=== PATIENT | male | born 1995 | race Caucasian/White ===

== ENCOUNTER 2020-02-23 15:38 | Emergency (ER) | payer OTHER, SELFPAY ==
[2020-02-23 15:48] VITALS: BP 131/68; PULSE 85; RESP 17; TEMP 37.6; O2SAT 98
--- NOTE | 2020-02-23 15:48 | ED.SKABFB ---
HPI - Skin/Abscess/Foreign Bdy General Chief complaint: Wound/Laceration Stated complaint: right leg sore Time Seen by Provider: 02/23/20 16:01 Source: patient and RN notes reviewed Mode of arrival: ambulatory Limitations: no limitations History of Present Illness HPI narrative: 23-year-old male presents with concern for a sore on his right lateral lower leg after possibly getting bit by a bug 1 week ago. Reports pain, tenderness, swelling, tightness. Denies fever, malaise, chills, sweats. Denies any intervention. MD complaint: other (Leg pain) Related Data Allergies Allergy/AdvReac Type Severity Reaction Status Date / Time No Known Allergies Allergy Unknown Verified 08/02/19 15:28 Review of Systems Review of Systems: Narrative: CONSTITUTIONAL: Denies malaise, chills, sweats, or fever. CARDIOVASCULAR: Denies chest pain, palpitations, or edema. RESPIRATORY: Denies cough or dyspnea. SKIN: Reports painful, red, swollen area on right lower leg MUSCULOSKELETAL: Denies myalgia. NEUROLOGIC: Denies numbness, weakness All systems reviewed & are unremarkable except as noted in HPI and below PMFSH Past Medical History Medical History (Updated 02/23/20 @ 16:00 by Taylor Green NP) Anxiety Depression Ear infection Enlarged adenoids Migraines Syncope Tonsillitis Surgical History Surgical History (Updated 08/02/19 @ 16:03 by Francoise Tamayo) H/O bone marrow transplant Hx of adenoidectomy Hx of tonsillectomy Social History Social History (Updated 08/02/19 @ 16:04 by Francoise Tamayo) Smoking packs per day: 1.5 Smoking cigarettes per day: 30.0 Years smoked: 6 Smoking pack-years: 9.00 Smoking status: Former smoker Tobacco type: cigarettes Smoking end date: 07/28/17 Comments At time of signature, agree with nursing past medical, surgical, social and family history. There is no relevant family history pertinent to the presenting complaint Exam Narrative: Exam Narrative: GENERAL: Well-appearing, well-nourished, and in no acute distress. HEAD: Normocephalic EYES: PERRLA, conjunctivae clear ENT: mucous membranes moist. NECK: Supple. CHEST: No respiratory distress. Speaks in full sentences. HEART: Regular rate and rhythm. EXTREMITIES: Normal range of motion. No edema. Normal strength and sensation. SKIN: Warm, dry. Approximately 10 cm area of erythema, induration, warmth, tenderness to the right lateral leg consistent with cellulitis, no fluctuation noted NEURO: Alert and oriented x3. PSYCH: Normal mood and affect Course Course Emergency Course: Patient is aware of diagnosis, understands and agrees to treatment plan. Anticipatory guidance given. Patient agrees to follow-up as directed and is aware of reasons to seek care at the emergency department. Portions of this record may have been created with voice recognition software Vital Signs Vital signs: Vital Signs Temperature 99.6 F 02/23/20 15:48 Pulse Rate 85 02/23/20 15:48 Respiratory Rate 17 02/23/20 15:48 Blood Pressure 131/68 02/23/20 15:48 Pulse Oximetry 98 02/23/20 15:48 Temperature 99.6 F 02/23/20 15:48 Pulse Rate 85 02/23/20 15:48 Respiratory Rate 17 02/23/20 15:48 Blood Pressure 131/68 02/23/20 15:48 Pulse Oximetry 98 02/23/20 15:48 Reviewed. MDM - Skin/Abscess/Foreign Bdy MDM Narrative Medical decision making narrative: Exam findings show no acute concerns or changes; patient is non-toxic appearing and is in no distress. Patient is appropriate for outpatient treatment and follow-up. Differential Diagnosis Differential diagnosis: Likely abscess of skin or subcutaneous tissue, urticaria, cellulitis, insect bites, impetigo and contact dermatitis Critical Care Time Critical Care Time Critical Care Time: No Discharge Plan Discharge Clinical Impression: Cellulitis Qualifiers: Site of cellulitis: extremity Site of cellulitis of extremity: lower extremity Laterality: right Qualified Code(s):
== END 2020-02-23 16:01 | disposition home or self-care (01) ==
PROVIDERS: Emergency Provider Nurse Practitioner; PCP Internal Medicine
DX: L03.115 Cellulitis of right lower limb (principal); Z87.891 Personal history of nicotine dependence; Z94.81 Bone marrow transplant status
CPT/HCPCS: 99213; G0463

== ENCOUNTER 2020-12-28 11:35 | Emergency (ER) | payer OTHER, SELFPAY ==
--- NOTE | ~2020-12-28 | XR_ITS ---
XR finger 4th RT min 2V 12/28/2020 11:57 INDICATION: Blunt trauma to right fourth finger with pain PROCEDURE: 4 views right fourth finger COMPARISON: No prior studies for comparison. FINDINGS: Fracture, dislocation or subluxation is not identified. The soft tissues appear within norm al limits. No foreign bodies are identified. IMPRESSION: 1: NO ACUTE BONE OR JOINT ABNORMALITY IDENTIFIED. Reviewed, dictated and finalized at location A.
[2020-12-28 11:40] VITALS: BP 143/79; PULSE 77; RESP 16; TEMP 37.4; O2SAT 100
--- NOTE | 2020-12-28 11:55 | ED.UPPEXIN ---
HPI - Extremity Injury (Upper) General Chief Complaint: Extremity Injury, Upper Stated Complaint: right hand finger injury Time Seen by Provider: 12/28/20 11:56 Source: patient and RN notes reviewed Mode of arrival: ambulatory Limitations: no limitations History of Present Illness HPI narrative: 25-year-old male presents with concern for crush injury to the fourth digit of his right hand that he sustained last night. He smashed the digit between 2 heavy items in his truck. Reports the tip of the digit seems deformed, he put it back in place . Reports decreased range of motion in the digit. Reports his fingernail is dark and has a lot of pressure under it. He denies lacerations, abrasions, deformities. MD complaint: injury to: right and hand Related Data Home Medications Medication Instructions Recorded Confirmed No Home Medications 12/28/20 12/28/20 Allergies Allergy/AdvReac Type Severity Reaction Status Date / Time No Known Allergies Allergy Unknown Verified 12/28/20 11:52 Review of Systems Review of Systems: Narrative: CONSTITUTIONAL: Denies malaise, chills, sweats, or fever. SKIN: Denies lacerations, abrasions. Reports dark-colored fingernail on the fourth digit of the right hand MUSCULOSKELETAL: Reports distal pain, swelling, bruising to the fourth digit of the right hand, decreased range of motion to the digit NEUROLOGIC: Denies numbness, weakness. All systems reviewed & are unremarkable except as noted in HPI and below PMFSH Past Medical History Medical History (Updated 12/28/20 @ 12:17 by Taylor Green NP) Anxiety Depression Ear infection Enlarged adenoids Migraines Syncope Tonsillitis Surgical History Surgical History (Updated 08/02/19 @ 16:03 by Francoise Tamayo) H/O bone marrow transplant Hx of adenoidectomy Hx of tonsillectomy Social History Social History (Updated 08/02/19 @ 16:04 by Francoise Tamayo) Smoking packs per day: 1.5 Smoking cigarettes per day: 30.0 Years smoked: 6 Smoking pack-years: 9.00 Smoking status: Former smoker Tobacco type: cigarettes Smoking end date: 07/28/17 Comments At time of signature, agree with nursing past medical, surgical, social and family history. There is no relevant family history pertinent to the presenting complaint Exam Narrative: Exam Narrative: GENERAL: Well-appearing, well-nourished, and in no acute distress. HEAD: Normocephalic EYES: PERRLA, conjunctivae clear NECK: Supple. CHEST: Speaks in full sentences. No respiratory distress. HEART: Regular rate and rhythm. Normal and equal peripheral pulses. EXTREMITIES: Fourth digit of right hand has normal sensation. 4/5 strength with digit flexion, extension. Range of motion normal. No clubbing, cyanosis noted. Mild amount of edema, ecchymosis, tenderness to the distal digit. Skin intact. Normal digital cascade with flexion of fingers, median, ulnar and radial nerve intact. Normal sensation of each side of finger. Can perform 'okay' sign, 'cross over finger test of index and middle fingers' and 'thumbs up' sign. No scissoring. Normal thumb opposition. Good capillary refill and radial pulse. Distal capillary refill less than 3 seconds. SKIN: Warn, dry, intact, pink. No rash. Subungual hematoma noted NEURO: Alert and oriented x3. PSYCH: Normal mood and affect Course Course Emergency Course: Patient is aware of diagnosis, understands and agrees to treatment plan. Anticipatory guidance given. Patient agrees to follow-up as directed and is aware of reasons to seek care at the emergency department. Portions of this record may have been created with voice recognition software Vital Signs Vital signs: Vital Signs Temperature 99.4 F 12/28/20 11:40 Pulse Rate 77 12/28/20 11:40 Respiratory Rate 16 12/28/20 11:40 Blood Pressure 143/79 H 12/28/20 11:40 Pulse Oximetry 100 12/28/20 11:40 Temperature 99.4 F 12/28/20 11:40 Pulse Rate 77 12/28/20 11:40 Respir
== END 2020-12-28 12:15 | disposition home or self-care (01) ==
PROVIDERS: Emergency Provider Nurse Practitioner; PCP Physician Assistant
DX: S69.91XA Unspecified injury of right wrist, hand and finger(s), initial encounter (principal); X58.XXXA Exposure to other specified factors, initial encounter; S60.141A Contusion of right ring finger with damage to nail, initial encounter; Z87.891 Personal history of nicotine dependence; Z94.81 Bone marrow transplant status
CPT/HCPCS: 11740; 73140; 99213; G0463

== ENCOUNTER 2021-06-26 13:08 | Emergency (ER) | payer OTHER, SELFPAY ==
[2021-06-26] VITALS (24 sets, daily range): BP systolic 136–156; BP diastolic 66–90; PULSE 44–64; RESP 11–18; TEMP 36.9; O2SAT 98–100
--- NOTE | ~2021-06-26 | XR_ITS ---
EXAMINATION: XR chest 1V portable 06/26/2021 17:24 INDICATION: Asymptomatic Covid. Vomiting. Overdose. PROCEDURE: AP chest COMPARISON: Comparison to multiple prior studies sequentially, with oldest reviewed study dated 04/16. FINDINGS: The lungs are clear. The cardiomediastinal silhouette is within normal limits. There are no pleural effusions. There is no pneumothorax suspected. IMPRESSION: 1: NO ACUTE CARDIOPULMONARY DISEASE. Reviewed, dictated and finalized at location A. [employer]
--- NOTE | 2021-06-26 13:41 | PC.NURSE ---
Poison Control contacted at this time, spoke with Debi SOMMERS. Pt reports taking 12 Nyquil Cold and Flu at noon. Check 4 hour acetaminophen level post ingestion (4 PM). Be aware of drowsiness, tachycardia, and Hypertension. Check EKG Symptomatic and supportive care. At risk for agitation and hallucinations if he took more than alerting staff. Medication will peak in 3 hours. Debi to fax additional information.
--- NOTE | 2021-06-26 13:51 | PC.NURSE ---
aware of information from poison control.
--- NOTE | 2021-06-26 14:12 | ECG_ITS ---
Measurements Intervals [place] Rate: 45 P: 64 CT: 144 QRS: 57 QRSD: 99 T: 63 QT: 467 QTc: 404 Interpretive Statements SINUS BRADYCARDIA BASELINE ARTIFACT- II, V3-V6 ABNORMAL ECG Electronically Signed On 06-26-2021 14:22:42 [employer] by Dada Fontanez D.O.
[2021-06-26 14:56] LABS: Basophils Absolute Auto 0.1 K/mm3 (0.0-0.1); Basophils Percent Auto 0.7 % (0.2-1.2); Eosinophils Absolute Auto 0.2 K/mm3 (0-0.3); Eosinophils Percent Auto 2.9 % (0-4.4); Hematocrit 44.9 % (42.0-52.0); Hemoglobin 15.9 g/dL (14.0-18.0); Immature Granulocyte Absolute 0.01 K/mm3 (0.00-0.031); Immature Granulocyte Percent A 0.1 % (0-0.5); Lymphocytes Percent Auto 22.2 % (18.3-44.2); Mean Corpuscular HGB Conc 35.4 g/dl (32-36); Mean Corpuscular Hemoglobin 30.8 pg (26-34); Mean Corpuscular Volume 86.8 fl (80-100); Mean Platelet Volume 9.7 fl (7.4-10.4); Monocytes Absolute Auto 1.1 K/mm3 (0.1-0.6); Monocytes Percent Auto 15.4 % (2.6-8.5); Neutrophils Absolute Auto 4.2 K/mm3 (1.3-6.7); Neutrophils Percent Auto 58.7 % (45.5-73.1); Platelet Count Result 236 k/mm3 (150-375); Red Blood Count 5.17 M/mm3 (4.6-6.20); Red Cell Distribution Width 12.1 % (11.5-14.5); White Blood Count 7.2 K/mm3 (4.5-10.0)
[2021-06-26 14:57] LABS: Acetaminophen < 10 ug/mL (10-30)
[2021-06-26 14:58] LABS: Ethanol < 10 mg/dL (<10)
[2021-06-26 15:04] LABS: Alanine Aminotransferase 45 U/L (4-50); Albumin Level 5.1 g/dL (3.5-5.1); Alkaline Phosphatase 58 U/L (38-126); Anion Gap 10 mmol/L (8-16); Aspartate Amino Transferase 46 U/L (17-59); Bilirubin,Total 0.4 mg/dL (0.2-1.3); Blood Urea Nitrogen 12 mg/dL (9-20); Calcium 9.4 mg/dL (8.4-10.2); Carbon Dioxide 29 mmol/L (22-30); Chloride 98 mmol/L (98-107); Estimated CRCL calculation 162 ml/min; Estimated Glomerular Filt Rate > 60; Glucose 84 mg/dL (65-110); Potassium 3.8 mmol/L (3.4-5.0); Sodium 137 mmol/L (137-145)
[2021-06-26 15:15] LABS: Amphetamine Screen Urine Negative (Negative); Barbiturate Screen Urine Negative (Negative); Benzodiazepines Screen Urine Negative (Negative); Cannabinoid Screen Urine Positive (Negative); Cocaine Screen Urine Negative (Negative); Methadone Screen Urine Negative (Negative); Opiate Screen Urine Negative (Negative); Phencyclidine Screen Urine Negative (Negative)
[2021-06-26 16:28] LABS: Acetaminophen < 10 ug/mL (10-30)
[2021-06-26 16:39] LABS: EDCOVIDSCREEN Positive (Negative)
--- NOTE | 2021-06-26 16:52 | PC.NURSE ---
Poison control called for update. States medications would have peaked by now.
--- NOTE | 2021-06-26 17:02 | PC.NURSE ---
Pt medically cleared at this time per Dr Garces. pt will be moving to room 15
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
--- NOTE | 2021-06-26 17:19 | PC.NURSE ---
Spoke with patient's . Informed her of patient's positive COVID result and that he is now not allowed to have visitors.
--- NOTE | 2021-06-26 18:28 | PC.NURSE ---
[place] clay washer at bedside at this time.
== END 2021-06-26 20:10 | disposition home or self-care (01) ==
PROVIDERS: Emergency Provider Emergency Medicine; PCP Physician Assistant
DX: F32.A Depression, unspecified (principal); T50.992A Poisoning by other drugs, medicaments and biological substances, intentional self-harm, initial encounter; U07.1 COVID-19; Z94.81 Bone marrow transplant status; Z87.891 Personal history of nicotine dependence; R00.1 Bradycardia, unspecified
CPT/HCPCS: 36415; 71045; 80053; 80307; 85025; 87426; 93005; 99284; C9803

== ENCOUNTER 2021-12-11 12:17 | Emergency (ER) | payer OTHER, SELFPAY ==
--- NOTE | ~2021-12-11 | XR_ITS ---
XR hand RT min 3V DATE: 12/11/2021 12:46 INDICATION: Punching injury TECHNIQUE: 3 views COMPARISON: 12/28/2020 right fourth digit FINDINGS: There is a boxer's fracture at the neck of the fifth metacarpal bone with mild anterior dis placement and apex posteromedial angulation. Chronic flexion deformity of fifth digit. No other fracture or dislocation. IMPRESSION: Boxer's fracture of fifth metacarpal bone Reviewed, dictated and finalized at location A.
[2021-12-11 12:38] VITALS: BP 141/76; PULSE 58; RESP 16; TEMP 37.5; O2SAT 98
--- NOTE | 2021-12-11 13:59 | ED.GENADULT ---
HPI - General Adult General Chief complaint: Extremity Injury, Upper Stated complaint: Right Hand Injury Source: patient Mode of arrival: ambulatory Limitations: no limitations History of Present Illness HPI narrative: Patient presents for evaluation of right hand since last night around 2129. His dog was attempting to get out. He dove in an attempt to catch a bug in his right hand hit the ground. He reports constant sharp, throbbing pain in the affected area rated 7 out of 10 in severity. he injured the tendon in fifth digit in that hand in the past and is unable to fully extend at MCP, PIP or DIP joints. He was. He took some tramadol which helped alleviate his pain. Denies paresthesias. He is ambidextrous. Related Data Allergies Allergy/AdvReac Type Severity Reaction Status Date / Time No Known Allergies Allergy Unknown Verified 06/26/21 13:35 Review of Systems Review of Systems: CONSTITUTIONAL: Denies fever, chills, or sweats. EYES: Denies visual changes, redness, or discharge. ENT: Denies rhinorrhea, congestion, sore throat, or otalgia. CARDIOVASCULAR: Denies chest pain, palpitations, or edema. RESPIRATORY: Denies cough or dyspnea. GASTROINTESTINAL: Denies abdominal pain, nausea, vomiting, or diarrhea. GENITOURINARY: Denies dysuria or hematuria. SKIN: Denies rash or itching. MUSCULOSKELETAL: Reports pain in the right hand. Denies back pain. NEUROLOGIC: Denies headache, numbness, dizziness, or weakness. PSYCHIATRIC: Denies anxiety or depression. [facility] Past Medical History Medical History (Updated 12/11/21 @ 14:06 by PHOEBE Whaley, ) Anxiety Depression Ear infection Enlarged adenoids Injury of tendon of right hand Migraines Syncope Tonsillitis Surgical History Surgical History H/O bone marrow transplant History of hand surgery Hx of adenoidectomy Hx of tonsillectomy Family History Family History Mother Family history non-contributory Social History Social History Smoking packs per day: 1.5 Smoking cigarettes per day: 30.0 Years smoked: 6 Smoking pack-years: 9.00 Smoking status: Former smoker Tobacco type: cigarettes Smoking end date: 07/28/17 Substance use type: marijuana Exam Narrative: GENERAL: Well-appearing, well-nourished, and in no acute distress. HEAD: Normocephalic, atraumatic. EYES: PERRLA and EOMI. ENT: Nares clear, no rhinorrhea or epistaxis. Mucous membranes moist. Oropharynx without tonsillar hypertrophy exudate or other lesions. Bilateral TMs pearly becerril nonbulging NECK: Supple. No adenopathy or masses. No carotid bruits or JVD CHEST: Clear to auscultation. No respiratory distress. No wheezes rales or rhonchi HEART: Regular rate and rhythm. No murmur heard. Normal peripheral pulses. ABDOMEN: Soft, nontender, nondistended, normal active bowel sounds. EXTREMITIES: Tenderness over fourth and fifth metacarpals of the right hand. There is slight swelling noted to the dorsal aspect of the right hand. Unable to fully extend fifth digit at MCP, DIP, PIP joints SKIN: Warm, dry, no rash. NEURO: No focal deficits. Alert and oriented x3. PSYCH: Normal mood and affect. Course Course Emergency Course: This is a 26-year-old male who present with complaints of pain in the right hand. On x-ray he has a metacarpal fracture. He was placed in a ulnar gutter splint. Post splint N/V intact. Advised he follow up with hand surgeon. He has a sling at home. Will dc with [employer]. He should return for worsening symptoms. Pt in agreement with plan of care. Level of Care: Express Care Visit Vital Signs Vital signs: Vital Signs Temperature 37.5 C 12/11/21 12:38 Pulse Rate 58 L 12/11/21 12:38 Respiratory Rate 16 12/11/21 12:38 Blood Pressure 141/76 H 12/11/21 12:38 Pulse Oximet
== END 2021-12-11 14:20 | disposition home or self-care (01) ==
PROVIDERS: Emergency Provider Nurse Practitioner; PCP Physician Assistant
DX: S62.336A Displaced fracture of neck of fifth metacarpal bone, right hand, initial encounter for closed fracture (principal); W19.XXXA Unspecified fall, initial encounter; Z94.81 Bone marrow transplant status; Z87.891 Personal history of nicotine dependence; F12.90 Cannabis use, unspecified, uncomplicated
CPT/HCPCS: 29125; 73130; 99213; G0463

== ENCOUNTER 2023-07-03 08:29 | Emergency (ER) | payer BC, SELFPAY ==
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
[2023-07-03 08:38] VITALS: BP 161/76; PULSE 65; RESP 16; TEMP 37.1; O2SAT 99
== END 2023-07-03 10:00 | disposition home or self-care (01) ==
PROVIDERS: Emergency Provider Nurse Practitioner; PCP Physician Assistant
DX: M54.50 Low back pain, unspecified (principal); Z87.891 Personal history of nicotine dependence; Z94.81 Bone marrow transplant status
CPT/HCPCS: 99213; G0463

== ENCOUNTER 2023-07-28 15:34 | Emergency (ER) | payer BC, SELFPAY ==
--- NOTE | ~2023-07-28 | XR_ITS ---
PA, oblique, and lateral views of the right thumb CLINICAL HISTORY: Injury FINDINGS: There is a probable oblique, nondisplaced fracture at the radial aspect of the base of the first proximal phalanx. No other fracture or dislocation seen. Joint spaces are intact otherwise. Sof t tissues are unremarkable. IMPRESSION: Suspected oblique, nondisplaced fracture the radial aspect of the base of first proximal phalanx. Reviewed, dictated and finalized at location M. [facility] HEWER
--- NOTE | ~2023-07-28 | XR_ITS ---
Right Hand Technique: PA, oblique, and lateral views were obtained. Clinical History: Injury Findings: No acute fracture or dislocation is seen. There is an old, healed fracture deformity the di stal fifth metacarpal neck. Joint spaces are preserved. Soft tissues are unremarkable. Impression: No acute abnormality. Old, healed fracture deformity of the distal fifth metacarpal neck. 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 Old, healed fracture deformity of the distal fifth metacarpal neck.
[2023-07-28 15:34] VITALS: BP 146/75; PULSE 89; RESP 16; TEMP 36.2; O2SAT 98
--- NOTE | 2023-07-28 16:19 | ED.UPPEXIN ---
HPI - Extremity Injury (Upper) General Chief Complaint: Extremity Injury, Upper Stated Complaint: right thumb pain Time Seen by Provider: 07/28/23 15:40 Source: patient Mode of arrival: ambulatory Limitations: no limitations History of Present Illness HPI narrative: Patient is a 28 year old male with a significant PMH that presents today with a right thumb injury/ hand injury. He was riding a mechanical bull and pulled his hand/thumb. He is having most of the pain at the base of the right thumb. He is unable to make a full fist. complaint: injury to: right Onset (ago): day(s) Other Extremity Injury: Right: fingers (1st metacarpal) Other injuries: none Handedness: right Place: other Severity: moderate Severity scale (1-10): 3 Relieving factors: none Exacerbating factors: movement of extremity Context: direct blow Associated symptoms: denies other symptoms Treatments prior to arrival: cold therapy Related Data Allergies Allergy/AdvReac Type Severity Reaction Status Date / Time No Known Allergies Allergy Unknown Verified 07/03/23 08:59 Review of Systems Review of Systems: All systems reviewed & are unremarkable except as noted in HPI and below Constitutional: Constitutional: Reports no additional constitutional complaints Eyes: Eyes: Reports no additional eye complaints ENT: Reports system reviewed and no additional complaints, except as documented Cardiovascular: Cardiovascular: Reports no additional cardiovascular complaints Respiratory: Respiratory: Reports no additional respiratory complaints Gastrointestinal: Gastrointestinal: Reports no additional gastrointestinal complaints Genitourinary: Genitourinary: Reports no additional male genitourinary complaints Musculoskeletal: Musculoskeletal: Reports as per HPI and Reports arthralgias (right hand/thumb ) Integumentary/Breasts: Skin/Breast: Reports system reviewed and no additional complaints, except as docu Neurologic: Reports system reviewed and no additional complaints, except as documented Psychiatric: Psychiatric: Reports no additional psychiatric complaints Endocrine: Endocrine: Reports no additional endocrine complaints Hematologic/Lymphatic: Hematologic/Lymphatic: Reports no additional hematologic/lymphatic complaints Allergic/Immunologic: Allergic/Immunologic: Reports no additional allergic/immunologic complaints [facility] Past Medical History Medical History Anxiety Depression Ear infection Enlarged adenoids Injury of tendon of right hand Migraines Syncope Tonsillitis Surgical History Surgical History H/O bone marrow transplant History of hand surgery Hx of adenoidectomy Hx of tonsillectomy Family History Family History Mother Family history non-contributory Social History Social History Smoking packs per day: 1.5 Smoking cigarettes per day: 30.0 Years smoked: 6 Smoking pack-years: 9.00 Smoking status: Former smoker Tobacco type: cigarettes Smoking end date: 07/28/17 Substance use type: marijuana Exam Const: General: healthy appearing Nutritional Appearance: well nourished Orientation/consciousness: patient oriented x3 Limitations: no limitations HENMT: Head: normal to inspection Ears: external ears normal Face/Nose/Sinus: Normal external nose present Face and sinus: normal facial exam Mouth: Yes Normal oral and palatal mucosa present Teeth and gingiva: dentition normal Throat: posterior oropharynx normal Eyes: Conjunctivae: conjunctivae normal Pupils: Equal, round and reactive pupils present EOM: EOMs intact bilaterally Direct Ophthalmoscopy: no photophobia Neck: Neck: normal visual inspection Chest: Chest palpation & inspection: normal inspection of the chest Resp: Effort & Inspe
== END 2023-07-28 16:36 | disposition home or self-care (01) ==
PROVIDERS: Emergency Provider Family Medicine
DX: S62.201A Unspecified fracture of first metacarpal bone, right hand, initial encounter for closed fracture (principal); S63.91XA Sprain of unspecified part of right wrist and hand, initial encounter; Z87.891 Personal history of nicotine dependence; X58.XXXA Exposure to other specified factors, initial encounter; Y93.I9 Activity, other involving external motion
CPT/HCPCS: 29130; 73120; 73140; 99284

== ENCOUNTER 2023-10-28 09:06 | Emergency (ER) | payer SELFPAY ==
[2023-10-28 09:18] VITALS: BP 146/74; PULSE 73; RESP 16; TEMP 36.8
--- NOTE | 2023-10-28 10:10 | ED.URI ---
HPI - URI/Sore Throat General Chief Complaint: Upper Respiratory Infection Stated Complaint: sinus/throat/sob Time Seen by Provider: 10/28/23 10:06 Source: patient and RN notes reviewed Mode of arrival: ambulatory Limitations: no limitations History of Present Illness HPI Narrative: Patient presents today with a 3 week history of productive cough, congestion, rhinorrhea, sore throat with headache and shortness of breath that started this morning. Denies fever. Currently rates his pain 4/10 and has taken DayQuil without relief. No history of asthma or COPD. States he smokes cigarettes. Related Data Allergies Allergy/AdvReac Type Severity Reaction Status Date / Time No Known Allergies Allergy Unknown Verified 07/03/23 08:59 Review of Systems Review of Systems: CONSTITUTIONAL: Denies body aches, fever, chills, or sweats. EYES: Denies visual changes, redness, or discharge. ENT: Denies otalgia.+ congestion, rhinorrhea, sore throat CARDIOVASCULAR: Denies chest pain, palpitations, or edema. RESPIRATORY: + cough, shortness of breath. GASTROINTESTINAL: Denies abdominal pain, nausea, vomiting, or diarrhea. GENITOURINARY: Denies dysuria or hematuria. SKIN: Denies rash, itching, or wounds. MUSCULOSKELETAL: Denies back pain, joint pain, or myalgia. NEUROLOGIC: Denies numbness, tingling, or weakness.+ headache PSYCH: Denies depression or anxiety. [facility] Past Medical History Medical History Anxiety Depression Ear infection Enlarged adenoids Injury of tendon of right hand Migraines Syncope Tonsillitis Surgical History Surgical History H/O bone marrow transplant History of hand surgery Hx of adenoidectomy Hx of tonsillectomy Family History Family History Mother Family history non-contributory Social History Social History Smoking packs per day: 1.5 Smoking cigarettes per day: 30.0 Years smoked: 6 Smoking pack-years: 9.00 Smoking status: Former smoker Tobacco type: cigarettes Smoking end date: 07/28/17 Substance use type: marijuana Comments At time of signature, I have reviewed and agree with nursing past medical, surgical, social and family history unless otherwise noted. Please see nursing chart for further information. There is no relevant family history pertinent to the presenting complaint Exam Narrative: GENERAL: Well-appearing, well-nourished, and in no acute distress. HEAD: Normocephalic, atraumatic. EYES: EOMI. No redness or drainage. Conjunctivae normal. ENT: Mucous membranes pink and moist. Nares congested. No rhinorrhea. TMs normal bilaterally. Throat normal. Uvula midline. NECK: Normal AROM. Supple. No lymphadenopathy. CHEST: No respiratory distress. Clear to auscultation. HEART: Regular rate and rhythm. No murmur appreciated. EXTREMITIES: Normal range of motion. No edema. SKIN: Warm, dry, no rash. Capillary refill normal. Normal skin turgor. NEURO: No focal deficits. Alert and oriented x3. Gait steady. PSYCH: Normal affect. No signs of depression or anxiety. Course Course Level of Care: Express Care Visit Vital Signs Vital signs: Vital Signs Temperature 98.2 F 10/28/23 09:18 Pulse Rate 73 10/28/23 09:18 Respiratory Rate 16 10/28/23 09:18 Blood Pressure 146/74 H 10/28/23 09:18 Oxygen Delivery Room Air 10/28/23 09:18 Temperature 98.2 F 10/28/23 09:18 Pulse Rate 73 10/28/23 09:18 Respiratory Rate 16 10/28/23 09:18 Blood Pressure 146/74 H 10/28/23 09:18 Oxygen Delivery Room Air 10/28/23 09:18 Reviewed MDM - URI/Sore Throat MDM Narrative Medical decision making narrative: Patient will be treated with Augmentin and prednisone for sinusitis and bronchitis. Anticipatory guidanc
== END 2023-10-28 10:15 | disposition home or self-care (01) ==
PROVIDERS: Emergency Provider Nurse Practitioner
DX: J40 Bronchitis, not specified as acute or chronic (principal); J01.90 Acute sinusitis, unspecified; Z87.891 Personal history of nicotine dependence
CPT/HCPCS: 99213; G0463

== ENCOUNTER 2023-12-31 11:22 | Emergency (ER) | payer SELFPAY ==
[2023-12-31 11:31] VITALS: BP 132/109; PULSE 91; RESP 15; TEMP 36.8; O2SAT 98
--- NOTE | 2023-12-31 12:11 | ED.EXTPRO ---
HPI - Extremity Problem General Chief complaint: Extremity Problem,Nontraumatic Stated complaint: Left Leg Injury Source: patient Mode of arrival: ambulatory Limitations: no limitations History of Present Illness HPI Narrative: Patient presents for evaluation of pain in the posterior aspect of left lower extremity. Pain extends from his left thigh through his left calf. He experienced his pain after doing leg presses at the gym. He rates his pain 8/10 in severity. Pain is sharp and worse with movement. Denies loss of ROM. No paresthesias. No associated swelling. Denies additional complaints or concerns. Related Data Allergies Allergy/AdvReac Type Severity Reaction Status Date / Time No Known Allergies Allergy Unknown Verified 07/03/23 08:59 Review of Systems Review of Systems: CONSTITUTIONAL: Denies fever, chills, or sweats. EYES: Denies visual changes, redness, or discharge. ENT: Denies rhinorrhea, congestion, sore throat, or otalgia. CARDIOVASCULAR: Denies chest pain, palpitations, or edema. RESPIRATORY: Denies cough or dyspnea. GASTROINTESTINAL: Denies abdominal pain, nausea, vomiting, or diarrhea. GENITOURINARY: Denies dysuria or hematuria. SKIN: Denies rash or itching. MUSCULOSKELETAL: Reports pain in left lower extremity. NEUROLOGIC: Denies headache, numbness, dizziness, or weakness. PSYCHIATRIC: Denies anxiety or depression. [facility] Past Medical History Medical History Anxiety Depression Ear infection Enlarged adenoids Injury of tendon of right hand Migraines Syncope Tonsillitis Surgical History Surgical History H/O bone marrow transplant History of hand surgery Hx of adenoidectomy Hx of tonsillectomy Family History Family History Mother Family history non-contributory Social History Social History Smoking packs per day: 1.5 Smoking cigarettes per day: 30.0 Years smoked: 6 Smoking pack-years: 9.00 Smoking status: Former smoker Tobacco type: cigarettes Smoking end date: 07/28/17 Substance use type: marijuana Exam Narrative: GENERAL: Well-appearing, well-nourished, and in no acute distress. HEAD: Normocephalic, atraumatic. EYES: PERRLA and EOMI. ENT: Nares clear, no rhinorrhea or epistaxis. Mucous membranes moist. Oropharynx without tonsillar hypertrophy exudate or other lesions. Bilateral TMs pearly becerril nonbulging NECK: Supple. No adenopathy or masses. No carotid bruits or JVD CHEST: Clear to auscultation. No respiratory distress. No wheezes rales or rhonchi HEART: Regular rate and rhythm. No murmur heard. Normal peripheral pulses. ABDOMEN: Soft, nontender, nondistended, normal active bowel sounds. EXTREMITIES: Full ROM of left hip, knee and ankle. 5/5 gross strength against resistance with flexion and extension of those joints. Negative Grimes's test SKIN: Warm, dry, no rash. NEURO: No focal deficits. Alert and oriented x3. PSYCH: Normal mood and affect. Course Course Emergency Course: This is a 28-year-old male who presented for evaluation of pain in the posterior aspect of the left leg. He has full ROM of those joints. Exam is consistent with muscle strain. Recommend NSAIDs and Flexeril. Advised on rest and application of warm moist heat. Follow up with primary provider. Go to the ER for worsening symptoms. Pt in agreement with plan of care. Level of Care: Express Care Visit Vital Signs Vital signs: Vital Signs Temperature 36.8 C 12/31/23 11:31 Pulse Rate 91 12/31/23 11:31 Respiratory Rate 15 12/31/23 11:31 Blood Pressure 132/109 H 12/31/23 11:31 Pulse Oximetry 98 12/31/23 11:31 Oxygen Delivery Room Air 12/31/23 11:31 Temperature 36.8 C 12/31/23 11:31 Pulse Rate 91
== END 2023-12-31 11:53 | disposition home or self-care (01) ==
PROVIDERS: Emergency Provider Nurse Practitioner
DX: S76.312A Strain of muscle, fascia and tendon of the posterior muscle group at thigh level, left thigh, initial encounter (principal); X50.3XXA Overexertion from repetitive movements, initial encounter; Z94.81 Bone marrow transplant status; Z87.891 Personal history of nicotine dependence; F12.90 Cannabis use, unspecified, uncomplicated
CPT/HCPCS: 99213; G0463

== ENCOUNTER 2024-06-03 18:47 | Emergency (ER) | payer SELFPAY ==
[2024-06-03 18:53] VITALS: BP 153/95; PULSE 77; RESP 16; TEMP 37.1; O2SAT 99
--- NOTE | 2024-06-03 19:04 | ED_ITS ---
HPI - Nausea/Vomiting/Diarrhea General Chief complaint: Nausea/Vomiting/Diarrhea Stated complaint: flu like symptoms Time Seen by Provider: 06/03/24 19:00 Source: patient, RN notes reviewed and old records reviewed Mode of arrival: ambulatory Limitations: no limitations History of Present Illness HPI Narrative: 29 year old male present to express care with complaints of 5-6 days of episodes of nausea, vomiting, and diarrhea. Patient reports that he has not had any fever, chills or sweats, or any body aches. Patient reports that he has some discomfort across lower abdomen described as cramping, no McBurney point tenderness noted and no pain elicited on palpation in lower abdomen. Patient reports that he has drank some water today and has kept some down. Patient reports no blood noted in his stools or emesis, no bilious vomiting.. Patient has not taken any OTC for his symptoms. MD elicited complaint: nausea, vomiting and diarrhea Onset (ago): day(s) (5-6 days) Description of vomiting: watery Description of diarrhea: watery Associated nausea: Yes Location of pain: other (lower abdomen cramping with stools) Treatment prior to arrival: other (none) Related Data Allergies Allergy/AdvReac Type Severity Reaction Status Date / Time No Known Allergies Allergy Unknown Verified 07/03/23 08:59 Review of Systems Review of Systems: CONSTITUTIONAL: Denies fever, chills, or sweats. ENT: Denies rhinorrhea, congestion, sore throat, or otalgia. CARDIOVASCULAR: Denies chest pain, palpitations, or edema. RESPIRATORY: Denies cough or dyspnea. GASTROINTESTINAL: Reports abdominal pain, nausea, vomiting, diarrhea. GENITOURINARY: Denies dysuria or hematuria. SKIN: Denies rash or itching. MUSCULOSKELETAL: Denies back pain, joint pain, or myalgia. NEUROLOGIC: Denies headache, numbness, or weakness. All systems reviewed & are unremarkable except as noted in HPI and below PMFSH Past Medical History Medical History Anxiety Depression Ear infection Enlarged adenoids Injury of tendon of right hand Migraines Syncope Tonsillitis Surgical History Surgical History H/O bone marrow transplant History of hand surgery Hx of adenoidectomy Hx of tonsillectomy Family History Family History Mother Family history non-contributory Social History Social History Smoking packs per day: 1.5 Smoking cigarettes per day: 30.0 Years smoked: 6 Smoking pack-years: 9.00 Smoking status: Former smoker Tobacco type: cigarettes Smoking end date: 07/28/17 Substance use type: marijuana Last use: edibles a couple times a week Comments At time of signature, agree with nursing past medical, surgical, social and f amily history. There is no relevant family history pertinent to the presenting complaint Exam Narrative: GENERAL: Well-appearing, well-nourished, and in no acute distress. HEAD: Normocephalic, atraumatic. EYES: PERRLA, conjunctivae clear, and EOMI. ENT: Nares clear. Mucous membranes moist. Oropharynx without edema, erythema, or lesions. Tonsils not present and throat without exudate. NECK: Supple. No lymphadenopathy CHEST: Speaks in full sentences. No respiratory distress. no cough noted SAO2 99% on room air HEART: Regular rate and rhythm. ABDOMEN: Soft, flat, nondistended. No guarding, rebound tenderness, or rigid. No pulsatilla masses. Bowel sounds present in all four quadrants. No organomegaly. Negative Simpson?s sign. No periumbilical tenderness. No Supra public tenderness or distension reports lower abdomen cramping.with bowel movement Good femoral pulses bilaterally. No hernia noted. No scars or surface trauma. No McBurney point tenderness SKIN: Warm, dry, no rash. NEURO:? Alert and oriented x3. PSYCH: Normal mood and affect Course Course Emergency Course: Patient is aware of diagnosis, understands and agrees to treatment plan.? Anticipatory guidance given.? Patient agrees to follow-up as directed and is aware of reasons to seek care at the emergency department. Portions of this record may have been created with voice recognition software Level of Care: Express Care Visit Vital Signs Vital signs: Vital Signs Temperature 37.1 C 06/03/24 18:53 Pulse Rate 77 06/03/24 18:53 Respiratory Rate 16 06/03/24 18:53 Blood Pressure 153/95 H 06/03/24 18:53 Pulse Oximetry 99 06/03/24 18:53 Oxygen Delivery Room Air 06/03/24 18:53 Temperature 37.1 C 06/03/24 18:53 Pulse Rate 77 06/03/24 18:53 Respiratory Rate 16 06/03/24 18:53 Blood Pressure 153/95 H 06/03/24 18:53 Pulse Oximetry 99 06/03/24 18:53 Oxygen Delivery Room Air 06/03/24 18:53 Reviewed MDM - Nausea/Vomiting/Diarrhea Differential Diagnosis Differential diagnosis: Likely food poisoning, gastroenteritis, dehydration and other (nausea, vomiting and diarrhea) Medical Records Attestation: I reviewed the patient's medical records. Critical Care Time Critical Care Time Critical Care Time: No Discharge Plan Discharge Clinical Impression: Gastroenteritis Patient Disposition: Home, Self-Care Condition: Stable Instructions: Antibiotic Form, Dehydration (ED), Clear Liquid Diet (ED), Gastroenteritis (ED) Additional Instructions: Clear liquids for the next 8-10 hours, then advance to a bland diet as tolerated A bland diet can consist of--BRAT diet which is bananas, rice, applesauce, and toast Avoid fried, greasy, fatty, fried foods Avoid caffeine, nicotine, and alcohol Return to your regular diet in the next 3-4 days Medication as directed for nausea and vomiting Tylenol for pain Sometimes ibuprofen/Aleve can cause increased stomach upset [id number] Imodium if develop diarrhea Follow-up with her PCP if continued problems or uncontrolled pain If your symptoms persist, change or worsen significantly before you can contact your personal physician then please, without delay, go to the emergency department for further evaluation. Follow-up with PCP in 7-10 days or sooner if needed Follow up with PCP soon in regards to your blood pressure which is elevated above threshold for referral. Blood pressure above 120/80 may indicate pre- hypertension.153/95 Prescriptions: New ondansetron 4 mg tablet,disintegrating 4 mg PO Q6H PRN (Reason: nausea and vomiting) Qty: 20 0RF dicyclomine 20 mg tablet 20 mg PO TID Qty: 14 0RF Follow-up/Referrals: PHYSICIAN,MANAGER OF TRAINING AND DEVELOPMENT [Primary Care Provider] - Time of Disposition: 19:18 Quality Tamia Coma Scale Eyes: Open Verbal: Oriented and Alert Motor: Follows Commands Tamia Coma Total Score: 15
== END 2024-06-03 19:23 | disposition home or self-care (01) ==
PROVIDERS: Emergency Provider Registered Nurse
DX: K52.9 Noninfective gastroenteritis and colitis, unspecified (principal); Z87.891 Personal history of nicotine dependence; F12.90 Cannabis use, unspecified, uncomplicated; Z94.81 Bone marrow transplant status
CPT/HCPCS: 99213; G0463

== ENCOUNTER 2025-02-01 15:22 | Emergency (ER) | payer OTHER, SELFPAY ==
--- NOTE | 2025-02-01 15:23 | ED_ITS ---
HPI - Skin/Abscess/Foreign Bdy General Chief complaint: Skin/Abscess/Foreign Body Stated complaint: Stung by ground hornets/allergic Time Seen by Provider: 02/01/25 15:30 Source: patient, RN notes reviewed and old records reviewed Mode of arrival: ambulatory Limitations: no limitations History of Present Illness HPI narrative: 29-year-old male presents to the [facility] after getting stung by hornets. Reports that he is allergic. Has full body hives. Talking in full sentences. No lip or tongue swelling at this time. Related Data Allergies Allergy/AdvReac Type Severity Reaction Status Date / Time No Known Allergies Allergy Unknown Verified 07/03/23 08:59 Review of Systems Review of Systems: All systems reviewed & are unremarkable except as noted in HPI and below Constitutional: Constitutional: Reports no additional constitutional complaints ENT: Reports system reviewed and no additional complaints, except as documented Cardiovascular: Cardiovascular: Reports no additional cardiovascular complaints, Denies chest pain and Denies dyspnea Respiratory: Respiratory: Reports no additional respiratory complaints, Denies chest congestion, Denies cough and Denies dyspnea Musculoskeletal: Musculoskeletal: Reports no additional musculoskeletal complaints Integumentary/Breasts: Skin/Breast: Reports as per HPI [facility] Past Medical History Medical History Injury of tendon of right hand Anxiety Depression Migraines Syncope Enlarged adenoids Tonsillitis Ear infection Surgical History Surgical History History of hand surgery H/O bone marrow transplant Hx of adenoidectomy Hx of tonsillectomy Family History Family History Mother Family history non-contributory Social History Social History Smoking packs per day: 1.5 Smoking cigarettes per day: 30.0 Years smoked: 6 Smoking pack-years: 9.00 Smoking status: Former smoker Tobacco type: cigarettes Smoking end date: 07/28/17 Substance use type: marijuana Last use: edibles a couple times a week Comments At the time of my signature, I reviewed and agree with the nursing past medical, surgical, social, and family history. There is no relevant family history pertinent to the patient complaint. Exam Const: General: cooperative, healthy appearing, comfortable, no acute distress, well developed, alert and well nourished Nutritional Appearance: well nourished Orientation/consciousness: patient oriented x3 Limitations: no limitations HENMT: Head: normal to inspection Ears: hearing grossly normal bilaterally, external ears normal, TM's normal bilaterally, EAC's normal, mastoids normal and no periauricular adenopathy Face and sinus: normal facial exam and face symmetric Mouth: Yes Normal oral and palatal mucosa present, Yes lip normal, Yes tongue normal and Yes moist mucous membranes Throat: posterior oropharynx normal, uvula midline and no uvular edema Eyes: General: appearance normal, both eyes and all related structures Alignment and Position: alignment normal Neck: Neck: normal visual inspection, full ROM, no lymphadenopathy and no meningeal signs Chest: Chest palpation & inspection: normal inspection of the chest Resp: Effort & Inspection: normal respiratory effort and able to speak in complete sentences Auscultation: clear to auscultation bilaterally, no crackles, no rales, no rhonchi and no wheezes Cardio: Rate: regular rate Skin: Rashes: rashes noted (Generalized hives) Neuro: General: patient oriented x3, gait normal, moves all extremities and no meningeal signs Cognition (Neuro): normal cognition Speech: normal speech Gait exam (Neuro): Normal gait present Extrem: General: normal to inspection, full ROM, capillary refill normal and normal gait Psych: Appearance: grossly normal and well kempt Mental Status: mental status grossly normal Speech and movement: Normal speech and movement present and Clear speech present Affect: normal affect Attitude: cooperative Course Course Emergency Course: 1556 re-evaluation of patient. Vitals remained stable. Hives have improved. Patient's report decreased of symptoms. Discussed with patient and his significant other that every time he gets done symptoms can get worse. If it ever happens again, hopefully not. Discussed signs and symptoms to proceed to the emergency room which him and significant other verbalized understanding Level of Care: Express [facility] Visit Vital Signs Vital signs: Vital Signs Temperature 99 F 02/01/25 15:28 Pulse Rate 105 H 02/01/25 15:28 Respiratory Rate 16 02/01/25 15:28 Blood Pressure 145/68 H 02/01/25 15:28 Pulse Oximetry 96 07/21/25 15:28 Oxygen Delivery Room Air 02/01/25 15:28 Temperature 99 F 02/01/25 15:28 Pulse Rate 105 H 02/01/25 15:28 Respiratory Rate 16 02/01/25 15:28 Blood Pressure 145/68 H 02/01/25 15:28 Pulse Oximetry 96 02/01/25 15:28 Oxygen Delivery Room Air 02/01/25 15:28 Reviewed MDM - Skin/Abscess/Foreign Bdy MDM Narrative Medical decision making narrative: Patient sitting in exam room. Patient is nontoxic, vitals stable. Patient 35 minutes prior to arrival was stung. Patient with generalized hives. Solu-Medro l, Benadryl and Pepcid given in clinic. Symptoms have improved. Discussed with patient and friend signs and symptoms proceed to the emergency room. Will prescribe prednisone. Discharge instructions reviewed with patient, as well as provided in writing per nursing staff. The instructions also include specific and strict return/GO TO THE ER as well as f/u information. All questions have been answered, and the patient deny any further questions with discharge and discharge plan. Some parts of this dictation were generated by voice recognition software and may contain typographical and/or grammatical inaccuracies. Differential Diagnosis Differential diagnosis: Likely insect bites Critical Care Time Critical Care Time Critical Care Time: No Discharge Plan Discharge Clinical Impression: Sting from hornet, wasp, or bee, Allergic reaction Patient Disposition: Home Condition: Stable Instructions: Antibiotic Form, General Allergic Reaction (ED) Additional Instructions: The most important part of your care is follow up with Primary care provider. Take Benadryl 25-50 mg every 8 hours for itching Take Zyrtec every day Take Pepcid 20mg daily for 7 days Take the steroids starting tomorrow morning, your 1st dose was given in the [facility] Avoid hot showers, Take cool showers. Hot showers will make rashes worse Apply cool compresses every 2-3 hours for 15 minutes Go to the ER for new or worsening symptoms such as shortness of breath. Patient Language: Algerian Prescriptions: New prednisone 20 mg tablet See Rx Instructions .Route .COMPLEX Qty: 18 0RF Rx Instructions: Take 60 mg daily for 3 days, 40 mg daily for 3 days, 20 mg daily for 3 days Follow-up/Referrals: UNKNOWN,DOCTOR [Non-Staff] - Stand Alone Forms: Work/School Release IP Time of Disposition: 16:05
[2025-02-01 15:28] VITALS: BP 145/68; PULSE 105; RESP 16; TEMP 37.2; O2SAT 96
[2025-02-01] MEDS: diphenhydrAMINE HCl CAP 25 MG CAPSULE 50 MG PO (15:37)
[2025-02-01] MEDS: FAMOTIDINE 20 MG TABLET PO (15:39)
--- NOTE | 2025-02-01 15:47 | PC.NURSE ---
Talking on phone. Sats 97%. Speaks full sentences
--- NOTE | 2025-02-01 15:56 | PC.NURSE ---
Feeling better. No trouble breathing. Hives improving.
== END 2025-02-01 16:23 | disposition home or self-care (01) ==
PROVIDERS: Emergency Provider Nurse Practitioner
DX: T63.451A Toxic effect of venom of hornets, accidental (unintentional), initial encounter (principal); L50.9 Urticaria, unspecified; Z87.891 Personal history of nicotine dependence
CPT/HCPCS: 96372; 99213; A9270; G0463; J2919

== ENCOUNTER 2025-04-12 05:03 | Emergency (ER) | payer OTHER, SELFPAY ==
--- NOTE | ~2025-04-12 | CT_ITS ---
CT abdomen pelvis w con Clinical History: epigastric abd pain . Comparison: None Technique: Axial images lung bases to symphysis pubis IV contrast information not listed in PACS Coronal, sagittal reformats CT images acquired with automatic exposure control for dose reduction DLP: 476 mGy-cm Findings: Lung bases: Clear. Visualized heart and pericardium: Unremarkable. Liver: Unremarkable. Gallbladder: Unremarkable. Spleen: Unremarkable. Pancreas: Unremarkable. Adrenal glands: Unremarkable. Kidneys: Right kidney- No hydronephrosis. No renal stones. Left kidney- No hydronephrosis. No renal stones. Distal esophagus/stomach: Unremarkable. Small bowel loops: Normal caliber and wall thickness. Distal small bowel feces indicating increased transport time. Colon: Diverticula. Normal caliber and wall thickness. Normal RLQ appendix. Nodes: No enlarged nodes. Peritoneum: No ascites. No free air. Urinary bladder: Unremarkable. Prostate: Unremarkable. Bones: No acute bony abnormality. Soft tissues: Unremarkable. Aorta: No aneurysm or dissection. IVC: Unremarkable. Main portal vein/SMV/splenic vein: Patent. IMPRESSION: 1. No acute findings. Reviewed, dictated and finalized at location R. IMPRESSION: 1. No acute findings.
[2025-04-12 05:07] VITALS: BP 154/94; PULSE 54; RESP 12; TEMP 37.2; O2SAT 99
[2025-04-12] MEDS: SODIUM CHLORIDE 0.9% IV 1,000 ML 999 ML IV CONT (05:20)
[2025-04-12] MEDS: ONDANSETRON INJ 4 MG/2 ML VIAL IV PUSH (05:21)
[2025-04-12] MEDS: MORPHINE SULFATE (*CRX) 4 MG/ML INJ IV PUSH (05:21)
[2025-04-12] MEDS: FAMOTIDINE 20 MG/2 ML VIAL IV PUSH (05:21)
[2025-04-12 05:40] LABS: Hematocrit 43.0 % (42.0-52.0); Hemoglobin 14.7 g/dL (14.0-18.0); Immature Granulocyte Percent A 0.2 % (0-0.5); Lymphocytes Absolute Auto 2.60 K/mm3 (0.9-3.2); Mean Corpuscular HGB Conc 34.2 g/dl (32-36); Mean Corpuscular Hemoglobin 29.9 pg (26-34); Mean Corpuscular Volume 87.4 fl (80-100); Nucleated Red Blood Cells Absolute Auto 0.000 K/mm3 (0.0-0.012); Nucleated Red Blood Cells Perc 0.0 % (0.0-0.2); Platelet Count Result 245 k/mm3 (150-375); Red Blood Count 4.92 M/mm3 (4.6-6.20); White Blood Count 6.0 K/mm3 (4.5-10.0)
[2025-04-12 06:10] LABS: Alanine Aminotransferase 60 U/L (6-50); Albumin Level 4.2 g/dL (3.5-5.1); Alkaline Phosphatase 74 U/L (38-126); Anion Gap 7 mmol/L (4-12); Aspartate Amino Transferase 87 U/L (17-59); Bilirubin,Total 0.7 mg/dL (0.2-1.3); Blood Urea Nitrogen 16 mg/dL (9-20); Calcium 8.8 mg/dL (8.4-10.2); Carbon Dioxide 25 mmol/L (22-30); Chloride 104 mmol/L (98-107); Estimated CRCL calculation 146 ml/min; Estimated Glomerular Filt Rate > 60; Glucose 117 mg/dL (65-110); Lipase 194 U/L (23-300); Magnesium 1.9 mg/dL (1.6-2.3); Potassium 4.0 mmol/L (3.4-5.0); Sodium 136 mmol/L (137-145); Total Protein 7.2 g/dL (6.3-8.2)
--- NOTE | 2025-04-12 06:19 | PC.NURSE ---
Patient taken to CT via stretcher.
--- NOTE | 2025-04-12 06:27 | ED_ITS ---
HPI - Abdominal Pain General Chief Complaint: Abdominal Pain Stated Complaint: abd pain Time Seen by Provider: 04/12/25 05:06 History of Present Illness HPI narrative: Patient is a 30-year-old male who presents emergency department this evening complaining of epigastric abdominal pain which started around 8:00 p.m. last night. Patient admits to history of GERD/acid reflux and admits to similar symptoms in the past. Denies any history of known gallstones or pancreatitis. Admits that the pain started after he had a large dinner. Patient also admits to nausea with a few episodes of vomiting and states that the pain does radiate to his chest. Denies any recent illness, fevers or chills. There are no additional modifying, alleviating, or precipitating factors at this time. Related Data Allergies Allergy/AdvReac Type Severity Reaction Status Date / Time No Known Allergies Allergy Unknown Verified 04/12/25 05:27 Review of Systems 2 Review of Systems: All systems are reviewed and are negative unless stated otherwise in the HPI. [facility] Past Medical History Medical History Injury of tendon of right hand Anxiety Depression Migraines Syncope Enlarged adenoids Tonsillitis Ear infection Surgical History Surgical History History of hand surgery H/O bone marrow transplant Hx of adenoidectomy Hx of tonsillectomy Family History Family History Mother Family history non-contributory Social History Social History Smoking packs per day: 1.5 Smoking cigarettes per day: 30.0 Years smoked: 6 Smoking pack-years: 9.00 Smoking status: Former smoker Tobacco type: cigarettes Smoking end date: 07/28/17 Substance use type: marijuana Last use: edibles a couple times a week Exam 2 Narrative: General: Alert, awake, afebrile, in no acute distress. HEENT: PERRL, no rhinorrhea, no post nasal drip, oropharynx clear. Neck: Trachea midline, no JVD, no lymphadenopathy. Cardiovascular: Regular rate and rhythm, no murmurs, rubs or gallops, no peripheral edema. Respiratory: Clear to auscultation bilaterally, no tachypnea, no wheezing, no rhonchi, no rubs, no respiratory distress. Abdomen: Soft, nontender, nondistended, no rebound, no guarding, no peritoneal signs. Musculoskeletal: No joint swelling or deformity, normal muscle tone. Skin: No rashes or petechia, no signs of infection. Psychiatric: Alert and oriented, normal behavior and judgment for situation. Neurological: Alert and oriented to person, place, and time. Follows all commands. No focal deficits, speech is clear and fluent. Course Vital Signs Vital signs: Vital Signs Temperature 98.9 F 04/12/25 05:07 Pulse Rate 54 L 04/12/25 05:07 Respiratory Rate 12 04/12/25 05:07 Blood Pressure 154/94 H 04/12/25 05:07 Pulse Oximetry 99 04/12/25 05:07 Temperature 98.9 F 04/12/25 05:07 Pulse Rate 54 L 04/12/25 05:07 Respiratory Rate 12 04/12/25 05:07 Blood Pressure 154/94 H 04/12/25 05:07 Pulse Oximetry 99 04/12/25 05:07 MDM - Abdominal Pain MDM Narrative Medical decision making narrative: The patient was evaluated by myself in the emergency department. History is obtained from patient who is an independent historian and physical exam was performed. External medical records were reviewed at this time. IV was established and pertinent tests were ordered. Patient was administered 1 L IV fluid bolus with normal saline, 4 mg of IV Zofran and 4 mg of IV morphine and to 20 mg of IV Pepcid. EKG was obtained and and platelet interpreted by me revealing sinus bradycardia rate of 41 beats per minute, no evidence of heart block, arrhythmia or acute ischemia. EKG currently pending official cardiology read. Laboratory results obtained revealing transaminitis with an AST of 87 and ALT of 60 otherwise unremarkable. Imaging studies obtained included CT abdomen pelvis with IV contrast which was independently interpreted by me revealing no acute process, which is pending final radiology interpretation. Differential diagnosis considerations include GERD/acid reflux/peptic ulcer disease, pancreatitis, gastritis, cholecystitis. Comorbidities impacting this visit include history of GERD. I have evaluated and discussed social determinants of health with the patient that could potentially impact subsequent diagnosis and treatment plans. On repeat assessment of the patient, reevaluation revealed that the patient is doing well and is in no acute distress. Patient symptoms have improved since he arrived to our emergency department. Repeat vital signs were all reviewed and noted to be stable. Differential diagnosis and treatment plan were discussed with the patient at bedside. Patient agrees with discussion and after shared medical decision making agrees with discharge. All questions were answered to the patient's satisfaction. Patient will follow up with GI in 3-5 days. Patient was provided with strict return precautions and instructed to return to the emergency department if any new or worsening symptoms develop. The patient was discharged in stable condition. Lab Data 04/12/25 05:20 04/12/25 05:20 Labs: Lab Results 04/12/25 Range/Units 05:20 WBC 6.0 (4.5-10.0) K/mm3 RBC 4.92 (4.6-6.20) M/mm3 Hgb 14.7 (14.0-18.0) g/dL Hct 43.0 (42.0-52.0) % MCV 87.4 (80-100) fl MCH 29.9 (26-34) pg MCHC 34.2 (32-36) g/dl RDW 12.8 (11.5-14.5) % Plt Count 245 (150-375) k/mm3 MPV 9.7 (7.4-10.4) fl Immature Gran % (Auto) 0.2 (0-0.5) % Neut % (Auto) 41.6 L (45.5-73.1) % Lymph % (Auto) 43.5 (18.3-44.2) % [place] % (Auto) 11.4 H (2.6-8.5) % Eos % (Auto) 3.0 (0-4.4) % Baso % (Auto) 0.3 (0.2-1.2) % Lymph # (Auto) 2.60 (0.9-3.2) K/mm3 [place] # (Auto) 0.7 H (0.1-0.6) K/mm3 Eos # (Auto) 0.2 (0-0.3) K/mm3 Baso # (Auto) 0.0 (0.0-0.1) K/mm3 Abs Immat Gran (auto) 0.01 (0.00-0.031) K/mm3 Absolute Neuts (auto) 2.5 (1.3-6.7) K/mm3 Absolute Nucleated RBC 0.000 (0.0-0.012) K/mm3 Nucleated RBC % 0.0 (0.0-0.2) % Sodium 136 L (137-145) mmol/L Potassium 4.0 (3.4-5.0) mmol/L Chloride 104 (98-107) mmol/L Carbon Dioxide 25 (22-30) mmol/L Anion Gap 7 (4-12) mmol/L BUN 16 (9-20) mg/dL Creatinine 0.75 (0.7-1.3) mg/dL Estim Creat Clear Calc 146 ml/min Estimated GFR > 60 (59 - ) Glucose 117 H (65-110) mg/dL Calcium 8.8 (8.4-10.2) mg/dL Magnesium 1.9 (1.6-2.3) mg/dL Total Bilirubin 0.7 (0.2-1.3) mg/dL AST 87 H (17-59) U/L ALT 60 H (6-50) U/L Alkaline Phosphatase 74 (38-126) U/L Total Protein 7.2 (6.3-8.2) g/dL Albumin 4.2 (3.5-5.1) g/dL Lipase 194 (23-300) U/L Imaging Data Radiologist's impression: ITS Impressions Abdomen/Pelvis CT 04/12/25 06:34 IMPRESSION: 1. No acute findings. Discharge Plan Discharge Clinical Impression: Acute epigastric pain Patient Disposition: Still a Patient Condition: Improved Instructions: Antibiotic Form, Abdominal Pain (ED) Additional Instructions: Please follow-up with the GI doctor you were provided with today within the next 3-5 days. Return to ED if any new or worsening symptoms develop. Patient Language: German Prescriptions: No Action prednisone 20 mg tablet See Rx Instructions .Route .COMPLEX Qty: 18 0RF Rx Instructions: Take 60 mg daily for 3 days, 40 mg daily for 3 days, 20 mg daily for 3 days Follow-up/Referrals: PHYSICIAN,[facility] [Primary Care Provider, Internal Medicine] Esau Medina MD [Physician, Gastroenterology] - 3 Days Time of Disposition: 06:50
--- NOTE | 2025-04-12 06:32 | ECG_ITS ---
Test Date: 2025-04-12 06:36:08 Measurements Intervals [place] Rate: 41 P: 75 OK: 165 QRS: 48 QRSD: 96 T: 49 QT: 492 QTc: 411 Interpretive Statements SINUS BRADYCARDIA Electronically Signed On 04-12-2025 06:37:06 CDT by Moises Cherry M.D.
[2025-04-12 07:01] VITALS: BP 136/83; PULSE 71; RESP 19; O2SAT 100
== END 2025-04-12 07:02 | disposition home or self-care (01) ==
PROVIDERS: Emergency Provider Emergency Medicine
DX: R10.13 Epigastric pain (principal); Z87.891 Personal history of nicotine dependence; F12.90 Cannabis use, unspecified, uncomplicated
CPT/HCPCS: 36415; 74177; 80053; 83690; 83735; 85025; 93005; 96361; 96374; 96375; 99284; J2270; J2405; J7030; Q9967